=== PATIENT | female | born 1975 | race Caucasian/White ===

== ENCOUNTER 2017-02-19 23:34 | Emergency (ER) | payer BC ==
[2017-02-19] MEDS ORDERED: IBUPROFEN 600 MG TABLET (FP) PO ONE ×2 (23:45→23:47)
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
[2017-02-19 23:46] VITALS: BP 135/89; PULSE 67; TEMP 98.3; BMI 20.3
== END 2017-02-20 00:28 | disposition home or self-care (01) ==
LOC: FER 23:34
DX: S50.02XA Contusion of left elbow, initial encounter (principal); S70.12XA Contusion of left thigh, initial encounter; V00.131A Fall from skateboard, initial encounter; Y93.89 Activity, other specified; Y92.410 Unspecified street and highway as the place of occurrence of the external cause; Z87.891 Personal history of nicotine dependence; E07.9 Disorder of thyroid, unspecified
CPT/HCPCS: 99281-25

== ENCOUNTER 2017-07-03 22:51 | Emergency (ER) | payer OTHER, BC ==
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
[2017-07-03 22:58] VITALS: BP 131/85; PULSE 75; TEMP 98.5; BMI 20.3
[2017-07-03] MEDS ORDERED: ACETAMINOPHEN 500 MG TABLET (FP) PO ONE (23:08)
== END 2017-07-03 23:35 | disposition home or self-care (01) ==
LOC: FER 22:51
DX: S90.32XA Contusion of left foot, initial encounter (principal); V09.1XXA Pedestrian injured in unspecified nontraffic accident, initial encounter; Y93.9 Activity, unspecified; Y92.9 Unspecified place or not applicable; Z87.891 Personal history of nicotine dependence
CPT/HCPCS: 73630-TC-LT; 99281-25

== ENCOUNTER 2022-09-29 20:08 | Emergency (ER) | payer BC, OTHER ==
[2022-09-29] MEDS ORDERED: ACETAMINOPHEN 500 MG TABLET (FP) PO ONE (20:11)
[2022-09-29 20:28] VITALS: BP 170/92; PULSE 67; RESP 19; TEMP 98.7; BMI 19.5
[2022-09-29] MEDS ORDERED: ACETAMINOPHEN 500 MG TABLET (FP) ONE (20:34)
== END 2022-09-29 20:51 | disposition home or self-care (01) ==
LOC: FER 20:08
DX: S99.921A Unspecified injury of right foot, initial encounter (principal); W22.8XXA Striking against or struck by other objects, initial encounter
CPT/HCPCS: 73630-TC-RT-FY; 99283-25